=== PATIENT | female | born 1965 | race Caucasian/White ===

== ENCOUNTER → 2018-08-18 | Outpatient (CLI) | payer OTHER ==
[~2018-08-18] MED LIST: BISOPROLOL/HCTZ1 TA2 PO; CIPRO500 MG PO; CITALOPRAM HYDR40 MG PO; IBUPROFEN600 MG PO
== END | disposition home or self-care (01) ==
LOC: RAD 11:52
DX: N20.0 Calculus of kidney (principal); R30.0 Dysuria

== ENCOUNTER 2018-09-24 15:40 | Emergency (ER) | payer OTHER ==
[~2018-09-24] VITALS: Ht 162.5 cm; Wt 136.1 kg
[2018-09-24] MEDS ORDERED: Motrin,Rufen800 MG PO (17:28)
[2018-09-24] MEDS ORDERED: MEDROL DOSEPAK4 MG PO (17:28)
== END 2018-09-24 17:49 | disposition home or self-care (01) ==
LOC: ED 15:40
DX: S29.012A Strain of muscle and tendon of back wall of thorax, initial encounter (principal); Z98.890 Other specified postprocedural states; Z98.51 Tubal ligation status; Z79.899 Other long term (current) drug therapy; Z88.0 Allergy status to penicillin; W01.0XXA Fall on same level from slipping, tripping and stumbling without subsequent striking against object, initial encounter; Y93.89 Activity, other specified; Y92.090 Kitchen in other non-institutional residence as the place of occurrence of the external cause; Y99.9 Unspecified external cause status